=== PATIENT | male | born 1960 | race Caucasian/White ===

== ENCOUNTER 2016-11-11 20:31 | Emergency (ER) | payer OTHER ==
[~2016-11-11] VITALS: Ht 190.5 cm; Wt 95.5 kg
[2016-11-11 20:34] VITALS: BP 138/89; PULSE 67; RESP 16; TEMP 98.2; O2SAT 98
--- NOTE | 2016-11-11 21:17 | PD ---
Physical Exam Time Seen by Provider: 21:13 Narrative 56yo M c/o "really bad" MARCUS behind his L eye socket since yesterday. Subsided last night after Tylenol. Came back this morning and has not decreased with Tylenol; again. MARCUS came on quick. +N w/o vomiting. +lightheadedness. + blurriness of vision. Aime focal deficits or weakness, slurred speech, confusion. Patient seen in triage. VS reviewed. Patient awaiting bed placement. Data Data Last Documented VS Vital Signs Date Time Temp Pulse Resp B/P (MAP) Pulse Ox O2 Delivery O2 Flow Rate FiO2 11/11/16 20:34 98.2 67 16 138/89 (105) 98 Room Air MDM Supervised Visit with JENNIE: Esperanza Carter Nov 11, 2016 21:17
[2016-11-11] MEDS ORDERED: MOME17I EACH NARE (21:20)
[2016-11-11] MEDS ORDERED: SODIUM CHLOR 0.9% 1000 ML INJ 1,000 ML IV ONE (21:52)
[2016-11-11] MEDS ORDERED: METOCLOPRAMIDE HCL 10 MG/2 ML VIAL IVP ONE (22:00)
[2016-11-11] MEDS ORDERED: SODIUM CHLORIDE 0.9% FLUSH 10 ML FLUSH IVF PRN (22:00)
[2016-11-11] MEDS ORDERED: diphenhydrAMINE HCL 50 MG/ML VIAL IVP ONE (22:00)
[2016-11-11] MEDS ORDERED: PROPARACAINE HCL 0.5% OPHT SOLN 15 ML BTL LEFT EYE ONE (22:00)
--- NOTE | 2016-11-11 22:06 | PD ---
HPI Chief Complaint: Headache Time Seen by Provider: 21:40 Travel History International Travel<30 days: No Contact w/Intl Traveler<30days: No Traveled to known affect area: No History of Present Illness HPI This is a 56-year-old male with no significant past medical history presents for evaluation of headache. Symptoms started yesterday afternoon. Pain is a left retro-orbital pain which is throbbing and constant. He took Tylenol yesterday which seemed to resolve the headache. The headache returned this morning and gradually worsened throughout the afternoon and this is what prompted evaluation. In addition to the pain he is having nasal congestion. He reports frequent episodes of sinusitis in the past. He endorses nausea but denies vomiting. He reports slight blurred vision in both eyes but he thinks that this may be attributed to his contacts being cloudy. He denies fevers or chills, stiff neck, rash. He reports that he had a similar headache 1-2 times several months ago. He feels that he may be dehydrated. He has no other complaints at this time. [facility] Past Medical History Diminished Hearing: No Medical other: Yes (seasonal allergies) Tetanus Vaccination: < 5 Years Influenza Vaccination: Yes Past Surgical History Surgical History: No Previous Surgery Social History Alcohol Use: Yes (socially) Tobacco Use: No Substance Use: No Allergies-Medications (Allergen,Severity, Reaction): Coded Allergies: codeine (Verified Allergy, Unknown, 11/11/16) Reported Meds & Prescriptions Reported Meds & Active Scripts Active Zofran (Ondansetron HCl) 4 Mg Tab 4 Mg PO Q6HR PRN Augmentin (Amoxicillin-Clavulanate) 875-125 Mg Tab 1 Tab PO BID 10 Days Reported Nasonex Nasal Oblong (Mometasone Furoate) 50 Mcg/Act Naspr 2 Oblong EACH NARE DAILY Review of Systems Except as stated in HPI: all other systems reviewed are Neg Physical Exam Narrative GENERAL: Well-developed well-nourished male in no acute distress resting comfortably on hospital bed vital signs reviewed. SKIN: Warm and dry. HEAD: Atraumatic. Normocephalic. EYES: Pupils equal and round to light extraocular muscles are intact. There is no proptosis, no pain with extraocular range of motion, no chemosis, no periorbital erythema or edema.. No scleral icterus. No injection or drainage. Intraocular pressure: 11, 13 ENT: No nasal bleeding or discharge. Mucous membranes pink and moist. NECK: Trachea midline. No JVD. CARDIOVASCULAR: Regular rate and rhythm. No murmur appreciated. RESPIRATORY: No accessory muscle use. Clear to auscultation. Breath sounds equal bilaterally. GASTROINTESTINAL: Abdomen soft, non-tender, nondistended. MUSCULOSKELETAL: No obvious deformities. No clubbing. No cyanosis. No edema. NEUROLOGICAL: Awake and alert. No obvious cranial nerve deficits. Motor grossly within normal limits. Normal speech. PSYCHIATRIC: Appropriate mood and affect; insight and judgment normal. Data Data Last Documented VS Vital Signs Date Time Temp Pulse Resp B/P (MAP) Pulse Ox O2 Delivery O2 Flow Rate FiO2 11/11/16 23:04 62 18 131/75 (93) 95 Room Air 11/11/16 20:34 98.2 Orders Orders Complete Blood Count With Diff (11/11/16 21:52) Comprehensive Metabolic Panel (11/11/16 21:52) W[place]gren Sedimentation Rate (11/11/16 21:52) Ct Brain W/O Iv Contrast(Rout) (11/11/16 21:52) Ecg Monitoring (11/11/16 21:52) Iv Access Insert/Monitor (11/11/16 21:52) Oximetry (11/11/16 21:52) Sodium Chloride 0.9% Flush (Ns Flush) (11/11/16 22:00) Diphenhydramine Inj (Benadryl Inj) (11/11/16 22:00) Metoclopramide Inj (Reglan Inj) (11/11/16 22:00) Sodium Chlor 0.9% 1000 Ml Inj (Ns 1000 M (11/11/16 21:52) Proparacaine 0.5% Opth Soln (Alcaine 0.5 (11/11/16 22:00) Ketorolac Inj (Toradol Inj) (11/11/16 23:15) Amoxicil-Clavulanate (Augmentin) (11/11/16 23:30) Labs Laboratory Tests Test 11/11/16 22:10 White Blood Count 9.0 TH/MM3 Red Blood Count 4.84 MIL/MM3 Hemoglobin 15.1 GM/DL Hematocrit 45.0 % Mean Corpuscular Volume 93.1 FL Mean Corpuscular Hemoglobin 31.2 PG Mean Corpuscular Hemoglobin Concent 33.4 % Red Cell Distribution Width 13.0 % Platelet Count 228 TH/MM3 Mean Platelet Volume 9.0 FL Neutrophils (%) (Auto) 73.7 % Lymphocytes (%) (Auto) 19.0 % Monocytes (%) (Auto) 5.5 % Eosinophils (%) (Auto) 1.1 % Basophils (%) (Auto) 0.7 % Neutrophils # (Auto) 6.6 TH/MM3 Lymphocytes # (Auto) 1.7 TH/MM3 Monocytes # (Auto) 0.5 TH/MM3 Eosinophils # (Auto) 0.1 TH/MM3 Basophils # (Auto) 0.1 TH/MM3 CBC Comment DIFF FINAL Differential Comment Erythrocyte Sedimentation Rate 2 mm/hr Blood Urea Nitrogen 10 MG/DL Creatinine 0.76 MG/DL Random Glucose 114 MG/DL Total Protein 6.6 GM/DL Albumin 3.7 GM/DL Calcium Level 8.2 MG/DL Alkaline Phosphatase 84 U/L Aspartate Amino Transf (AST/SGOT) 15 U/L Alanine Aminotransferase (ALT/SGPT) 25 U/L Total Bilirubin 2.1 MG/DL Sodium Level 136 MEQ/L Potassium Level 3.5 MEQ/L Chloride Level 102 MEQ/L Carbon Dioxide Level 23.7 MEQ/L Anion Gap 10 MEQ/L Estimat Glomerular Filtration Rate 106 ML/MIN MDM Medical Decision Making Medical Screen Exam Complete: Yes Emergency Medical Condition: Yes Medical Record Reviewed: Yes Interpretation(s) There is mucoperiosteal thickening in the left maxillary and ethmoid sinus. Differential Diagnosis Migraine, temporal arteritis, cluster headache, mass, acute angle-closure glaucoma, orbital cellulitis, sinusitis, subarachnoid hemorrhage Narrative Course This is a 56-year-old male who presents with a left retro-orbital headache intermittently since yesterday with associated nausea. He reports some nasal congestion. He is otherwise without complaint. Examination reveals no focal neurologic deficits. There is no obvious ocular involvement. Plan is for basic lab work, CT brain. He'll be given IV fluids, Reglan and Benadryl. He will be monitored closely. CT imaging reveals no acute intracranial abnormality but there is mucopurulent still thickening localized to the left maxillary and ethmoid sinus which is consistent with the patient's area of discomfort as well as his history of nasal congestion. His lab work is reassuring with no leukocytosis. His bilirubin is elevated at 2.1. At this point in time the plan would be to treat the patient for his sinusitis with Augmentin. He will also be given a prescription for Zofran. Recommended follow-up with primary care physician and return for any acutely new or worsening symptoms. He is in agreement with this plan. Diagnosis Primary Impression: Sinusitis Qualified Codes: J01.91 - Acute recurrent sinusitis, unspecified Additional Impression: Cephalgia Qualified Codes: R51 - Headache Additional Instructions: Medications prescribed. Stay well hydrated and well-nourished. Take Tylenol or Motrin for discomfort per dosing instructions on the bottle. Continue Nasonex as prescribed. Follow-up with her primary care physician and return for any acutely new or worsening symptoms. Med/Other Pt SpecificInfo: Prescription(s) given Scripts Ondansetron (Zofran) 4 Mg Tab 4 MG PO Q6HR Y for NAUSEA OR VOMITING, #20 TAB 0 Refills Prov: Vitaliy Orlando MD 11/11/16 Amoxicillin-Clavulanate (Augmentin) 875-125 Mg Tab 1 TAB PO BID for Infection for 10 Days, TAB 0 Refills Prov: Vitaliy Orlando MD 11/11/16 Disposition: 01 DISCHARGE HOME Condition: Stable Arnaldo Ch Nov 11, 2016 22:06
[2016-11-11 22:47] LABS: AUTOMATED NEUTROPHIL # 6.6 TH/MM3 (1.8-7.7); BASOPHIL # 0.1 TH/MM3 (0-0.2); BASOPHIL % 0.7 % (0.0-2.0); EOSINOPHIL # 0.1 TH/MM3 (0-0.4); EOSINOPHIL % 1.1 % (0.0-4.0); HEMO FLAGS DIFF FINAL; LYMPHOCYTE # 1.7 TH/MM3 (1.0-4.8); MEAN CELL VOLUME 93.1 FL (80.0-100.0); MEAN CORPUSCULAR HEMOGLOBIN 31.2 PG (27.0-34.0); MEAN CORPUSCULAR HGB CONC 33.4 % (32.0-36.0); MONO % 5.5 % (0.0-8.0); NEUT % 73.7 % (16.0-70.0); PLATELET COUNT 228 TH/MM3 (150-450); RED BLOOD COUNT 4.84 MIL/MM3 (4.50-5.90)
[2016-11-11 22:48] LABS: ALT (GPT) 25 U/L (12-78); ANION GAP 10 MEQ/L (5-15); AST (GOT) 15 U/L (15-37); BICARBONATE 23.7 MEQ/L (21.0-32.0); BLOOD UREA NITROGEN 10 MG/DL (7-18); CHLORIDE 102 MEQ/L (98-107); GLOMERULAR FILTRATION RATE 106 ML/MIN (>89); POTASSIUM 3.5 MEQ/L (3.5-5.1); SODIUM (NA) 136 MEQ/L (136-145)
[2016-11-11 22:50] LABS: ALKALINE PHOSPHATASE 84 U/L (45-117); TOTAL BILIRUBIN ADULT 2.1 MG/DL (0.2-1.0)
--- NOTE | 2016-11-11 23:01 | RADRPT ---
EXAM DATE/TIME: 11/11/2016 22:33 [place] COMPARISON: No previous studies available for comparison. INDICATIONS : Head pain along with nausea and vomiting. RADIATION DOSE: 56.35 CTDIvol (mGy) MEDICAL HISTORY : None SURGICAL HISTORY : None. ENCOUNTER: Initial ACUITY: 2 days PAIN SCALE: 8/10 LOCATION: cranial TECHNIQUE: Multiple contiguous axial images were obtained of the head. Using automated exposure control and adj ustment of the mA and/or kV according to patient size, radiation dose was kept as low as reasonably a chievable to obtain optimal diagnostic quality images. DICOM format image data is available electro nically for review and comparison. FINDINGS: CEREBRUM: The ventricles are normal. No evidence of midline shift, mass lesion, hemorrhage or acute infarction . No extra-axial fluid collections are seen. POSTERIOR FOSSA: The cerebellum and brainstem are intact. The 4th ventricle is midline. The cerebellopontine angle i s unremarkable. EXTRACRANIAL: There is mucoperiosteal thickening in the left maxillary and ethmoid sinus. SKULL: The calvaria is intact. No evidence of skull fracture. CONCLUSION: No acute intracranial abnormality is identified. Stephon Fermin MD on November 11, 2016 at 22:57 Board Certified Radiologist. This report was verified electronically.
[2016-11-11 23:04] VITALS: BP 131/75; PULSE 62; RESP 18; O2SAT 95
[2016-11-11] MEDS ORDERED: KETOROLAC TROMETHAMINE 30 MG/ML (IVP) VIAL IV PUSH ONE (23:15)
[2016-11-11] MEDS ORDERED: AUGM875T3 PO (23:29)
[2016-11-11] MEDS ORDERED: ZOFR4TAB PO (23:29)
[2016-11-11] MEDS ORDERED: AMOXICILLIN/CLAVULANATE K 875 MG TAB PO ONE (23:30)
== END 2016-11-12 00:14 | disposition home or self-care (01) ==
LOC: NEPD 20:31
DX: J32.9 Chronic sinusitis, unspecified (principal); R51 Headache; R11.0 Nausea; R09.81 Nasal congestion
CPT/HCPCS: 70450; 80053; 85025; 85652; 96361; 96374; 96375; 99285; J1200; J1885; J2765; J7030